=== PATIENT | female | born 1975 | race Caucasian/White ===

== ENCOUNTER 2017-07-14 21:54 | Observation (INO) | payer SELFPAY ==
[2017-07-14] MEDS ORDERED: Ondansetron INJ* 2 MG/ML VIAL IV ONE (22:55)
[2017-07-14] MEDS ORDERED: NS 0.9% 1000 ML* 1,000 ML IV ONE (22:55)
[2017-07-14] MEDS ORDERED: Meclizine TAB* 12.5 MG PO ONE (22:55)
[2017-07-14 23:08] LABS: Hematocrit 38 % (35-47); Hemoglobin 12.6 g/dl (12.0-16.0); Mean Corpuscular HGB Conc 33 g/dl (31-36); Mean Corpuscular Hemoglobin 28 pg (27-31); Mean Corpuscular Volume 85 fL (80-97); Mean Platelet Volume 8 um3 (7.4-10.4); Red Blood Count 4.48 10^6/ul (4.0-5.4); Red Cell Distribution Width 15 % (10.5-15)
[2017-07-14 23:21] LABS: ALT 30 U/L (7-52); AST 19 U/L (13-39); Albumin 4.1 g/dL (3.2-5.2); Alkaline Phosphatase 99 U/L (34-104); Anion Gap 8 mmol/L (2-11); BUN/Creatinine Ratio 15.3 (8-20); Blood Urea Nitrogen 11 mg/dL (6-24); CO2 Carbon Dioxide 25 mmol/L (22-32); Calcium 9.6 mg/dL (8.6-10.3); Chloride 103 mmol/L (101-111); EGFR African American 115.4 (>60); EGFR Non-African American 89.7 (>60); Globulin 3.5 g/dL (2-4); Glucose 136 mg/dL (70-100); Potassium 3.5 mmol/L (3.5-5.0); Sodium 136 mmol/L (133-145); Total Protein 7.6 g/dL (6.4-8.9)
[2017-07-15] MEDS ORDERED: LORazepam INJ* 2 MG/ML 1 ML VIAL IV PUSH ONE (00:16)
[2017-07-15] MEDS ORDERED: NS 0.9% 1000 ML* 1,000 ML IV SCH ×2 (04:15→14:24)
--- NOTE | 2017-07-15 07:13 | HP ---
CC: Rachael Briceno MD * HISTORY AND PHYSICAL: DATE OF ADMISSION: 07/15/17 PRIMARY CARE PHYSICIAN: Rachael Briceno MD CHIEF COMPLAINT: Vertigo. HISTORY OF PRESENT ILLNESS: Sonal Saucedo is a 42-year-old female with no significant past medical history, who presented to the hospital complaining of vertigo. The patient stated that she was driving home from work and she turned her head rapidly to see if there is no deer on the side of the road and when she looked back in the front of the car, she all of a sudden became nauseated and noted to have severe vertigo. That was over 24 hours prior to her presentation to the ED. For the past 24 hours, she was trying to treat herself with Benadryl. She continues to be nauseated whenever she sits up or moves her head. She continues to complain of the whole wall "spinning." The patient is going to be placed on overnight observation with a diagnosis of benign positional vertigo. PAST MEDICAL HISTORY: None. CURRENT MEDICATIONS: None apart from p.r.n. Benadryl over the counter. ALLERGIES: NAPROXEN and PENICILLIN. FAMILY HISTORY: Positive for father with hypertension and diabetes and mother with hypothyroidism. SOCIAL HISTORY: The patient denies any tobacco, alcohol, or drug use. She lives with her and 3 children. Her will be her surrogate if needed. REVIEW OF SYSTEMS: Please see history of present illness. In addition to the above mentioned, the patient stated that she has not had any recent fevers or upper respiratory infection symptoms. She has no history of sick contacts. She denies any abdominal pain or diarrhea. All the remaining 12 systems were reviewed with the patient and were otherwise negative. PHYSICAL EXAMINATION GENERAL: The patient is a very pleasant 42-year-old female, who is in no acute distress. Alert, awake, and oriented x3. VITAL SIGNS: Blood pressure of 110/65, heart rate of 65 and regular, respiratory rate 16, oxygen saturation 96% on room air, temperature of 98.2. HEENT: Head: Atraumatic, normocephalic. Eyes: Pupils are equal, reactive to light and accommodation. Oropharynx clear. Mucosa moist. On evaluation of patient's ear canal, the tympanic membranes, there are no abnormalities noted on otoscopic evaluation. NECK: Supple. No JVD. No bruits bilaterally. RESPIRATORY: Clear to auscultation bilaterally. CARDIOVASCULAR: Regular rate and rhythm. No murmurs. ABDOMEN: Soft and nontender. Bowel sounds present in all quadrants. EXTREMITIES: There is no edema. Pulses +2 bilaterally. No clubbing or cyanosis. NEURO: Noted for nystagmus with a fast phase to the right. Cranial nerves II through XII grossly intact. Motor strength is 5/5 bilaterally. SKIN: On evaluation of the skin, no ecchymotic areas or rashes. DIAGNOSTIC STUDIES/LAB DATA: White blood cell count of 12.0, hemoglobin 12.6, hematocrit 38, platelets of 331. Sodium 136, potassium 3.5, chloride 103, carbon dioxide 25, BUN 11, creatinine 0.72. Liver functions are unremarkable. Beta HCG below 0.6. CT of the brain performed in the ED, impression: "There is a small calcification noted in the left parietal lobe region of questionable significance. There is no skull fracture. Visualized portions of the paranasal sinuses are essentially clear. Mastoid air cells are normally pneumatized." ASSESSMENT AND PLAN: A 42-year-old female with no significant past medical history, who developed vertigo after she moved her head abruptly to one side. At this point, it appears that the patient has benign positional vertigo and nystagmus due to that. The patient is going to be placed on overnight observation on medical floor. Intravenous hydration is going to be provided as well as meclizine. For DVT prophylaxis, the patient is ambulatory and that is going to be encouraged. TIME SPENT: Approximately 55 minutes was spent on admission of this patient, more than half the time was spent [id number] with the patient during the interview and physical exam. [id number]/[facility] #: [id number] [facility]ITAL[facility]mi
[2017-07-15] MEDS ORDERED: Ondansetron INJ* 2 MG/ML VIAL IV PRN (07:56)
[2017-07-15] MEDS ORDERED: Acetaminophen TAB* 325 MG PO PRN (07:57)
--- NOTE | 2017-07-15 08:06 | RAD ---
INDICATION: Vertigo. COMPARISON: There are no prior studies available for comparison. TECHNIQUE: Contiguous axial sections of the brain were obtained from the skull base to the vertex without contrast. FINDINGS: The ventricles, cisterns and sulci are within normal limits. No significant focal abnormality or mass effect is seen. There is no evidence for hemorrhage. There is a small coarse nonspecific although likely incidental calcification which projects in the left parietal lobe. No significant focal osseous abnormality is seen. The visualized portion of the paranasal sinuses and mastoid air cells appear clear. IMPRESSION: NO EVIDENCE FOR GROSS ACUTE INFARCT, MASS EFFECT OR HEMORRHAGE.
[2017-07-15] MEDS: Meclizine TAB* 12.5 MG PO SCH ×3 (10:00→21:20)
[2017-07-15] MEDS ORDERED: PROCHLORPERAZINE INJ 5 MG/ML 2 ML VIAL IV PRN (11:53)
[2017-07-15 12:13] LABS: Urine Bacteria Absent (Absent); Urine Bilirubin Negative (Negative); Urine Glucose Negative (Negative); Urine Nitrite Negative (Negative)
[2017-07-15] MEDS: Diazepam TAB(*) 5 MG PO PRN (14:46)
--- NOTE | 2017-07-15 19:04 | PN ---
Subjective Date of Service: 07/15/17 Interval History: Ms. Saucedo states that she has had no real change to her vertigo or nausea. She denies other complaint including chest pain, SOB, nausea, or abdominal pain. She further denies ear pain, throat pain. She has no sinus congestion or nasal drainage. Objective Active Medications: Acetaminophen (Tylenol Tab*) 650 mg PO Q4H PRN Diazepam (Valium Tab(*)) 5 mg PO Q8H PRN Sodium Chloride (Ns 0.9% 1000 Ml*) 1,000 mls @ 75 mls/hr IV PER RATE MATILDE Meclizine HCl (Antivert Tab*) 25 mg PO TID MATILDE Ondansetron HCl (Zofran Inj*) 4 mg IV Q6H PRN Prochlorperazine Edisylate (Compazine Inj*) 5 mg IV Q6H PRN Vital Signs: Temp Pulse Resp BP Pulse Ox 97.5 F 65 16 114/63 97 07/15/17 15:13 07/15/17 15:13 07/15/17 17:19 07/15/17 15:13 07/15/17 15:13 Oxygen Devices in Use Now: None Appearance: Female lying in bed in NAD Eyes: No Scleral Icterus Ears/Nose/Mouth/Throat: Mucous Membranes Moist Neck: Trachea Midline Respiratory: Symmetrical Chest Expansion and Respiratory Effort, Clear to Auscultation Cardiovascular: NL Sounds; No Murmurs; No JVD, No Edema Abdominal: NL Sounds; No Tenderness; No Distention Lymphatic: No Cervical Adenopathy Extremities: No Edema Skin: No Rash or Ulcers Neurological: Alert and Oriented x 3, NL Muscle Strength and Tone Nutrition: Taking PO's Result Diagrams: 07/14/17 22:34 07/14/17 22:34 Assess/Plan/Problems-Billing Assessment: Ms. Saucedo is a 42 yo female with no significant PMH who was admitted on 07/14 with vertigo. - Patient Problems (1) Vertigo Comment: - Appreciate neuro consult. - Continue to suspect peripheral vertigo, possible BPPV though Lawanda maneuver was not successful in reducing symptoms. - Continue valium, meclizine and IV fluids. (2) Nausea Comment: - Continue zofran, compazine. (3) DVT prophylaxis Comment: - Early mobility, SCDs. (4) Full code status Status and Disposition: OBV. Anticipate discharge to home when medically stable.
[2017-07-16] MEDS: Diazepam TAB(*) 5 MG PO PRN (00:08)
[2017-07-16 08:30] VITALS: BP 121/71
[2017-07-16] MEDS ORDERED: Meclizine TAB* 12.5 MG PO SCH (08:36)
--- NOTE | 2017-07-16 09:19 | PN ---
Subjective Date of Service: 07/16/17 Interval History: Ms. Saucedo states that she is feeling better this morning. She is able to sit up and is tolerating jello for breakfast. She continues to feel vertiginous when she turns her head quickly. She denies other complaint including chest pain, SOB, or abdominal pain. Objective Active Medications: Acetaminophen (Tylenol Tab*) 650 mg PO Q4H PRN Diazepam (Valium Tab(*)) 5 mg PO Q8H PRN Sodium Chloride (Ns 0.9% 1000 Ml*) 1,000 mls @ 75 mls/hr IV PER RATE MATILDE Meclizine HCl (Antivert Tab*) 12.5 mg PO TID MATILDE Ondansetron HCl (Zofran Inj*) 4 mg IV Q6H PRN Prochlorperazine Edisylate (Compazine Inj*) 5 mg IV Q6H PRN Vital Signs: Temp Pulse Resp BP Pulse Ox 97.4 F 70 18 121/71 98 07/16/17 07:40 07/16/17 07:40 07/16/17 07:40 07/16/17 07:40 07/16/17 07:40 Oxygen Devices in Use Now: None Appearance: Female sitting up in bed in NAD Eyes: No Scleral Icterus Ears/Nose/Mouth/Throat: Mucous Membranes Moist Neck: Trachea Midline Respiratory: Symmetrical Chest Expansion and Respiratory Effort, Clear to Auscultation Cardiovascular: NL Sounds; No Murmurs; No JVD, No Edema Abdominal: NL Sounds; No Tenderness; No Distention Lymphatic: No Cervical Adenopathy Extremities: No Edema Skin: No Rash or Ulcers Neurological: Alert and Oriented x 3, NL Muscle Strength and Tone, - - Nystagmus much improved today Nutrition: Taking PO's Result Diagrams: 07/14/17 22:34 07/14/17 22:34 Assess/Plan/Problems-Billing Assessment: Ms. Saucedo is a 42 yo female with no significant PMH who was admitted on 07/14 with vertigo. - Patient Problems (1) Vertigo Comment: - Much improved today. - Appreciate neuro consult. - Continue to suspect peripheral vertigo, possible BPPV though Lawanda maneuver was not initially successful in reducing symptoms. - Continue valium, meclizine, zofran and scopolamine. (2) Nausea Comment: - Continue zofran. (3) DVT prophylaxis Comment: - Early mobility, SCDs. (4) Full code status Status and Disposition: OBV. Discharge to home.
[2017-07-16] MEDS ORDERED: Ondansetron ODT TAB* 4 MG SL PRN (11:50)
--- NOTE | 2017-07-17 01:18 | DS ---
CC: Rachael Briceno MD * [facility] MEDICINE DISCHARGE SUMMARY: DATE OF ADMISSION: 07/15/17 DATE OF DISCHARGE: 07/16/17 PRIMARY CARE PHYSICIAN: Rachael Briceno MD. ATTENDING PHYSICIAN: Dr. Wes Copeland * (dictation provided by Radha Hernandez NP) PRIMARY DIAGNOSIS: Benign paroxysmal positional vertigo. SECONDARY DIAGNOSIS: None. MEDICATIONS AT THE TIME OF DISCHARGE: 1. Ondansetron 4 mg p.o. q.4 hours p.r.n. nausea. 2. Meclizine 12.5 mg p.o. t.i.d. 3. Diazepam 5 mg p.o. q.8 hours p.r.n. 4. Scopolamine patch one tab q.72 hours. HOSPITAL COURSE: Ms. Saucedo is a 42-year-old female with no significant past medical history, who presented to the hospital on 07/15/17, with concern for vertigo. Please see dictated H and P from Dr. Idalia Cruz for complete details. In brief, the patient had been driving home after work when she turned her head to the right and developed a sudden onset of spinning sensation with vertigo and nausea. The patient was able to make it home. She stayed at home for about 24 hours but when her symptoms did not resolve, she ultimately presented to the emergency room for evaluation. In the emergency room, she had a CT of the brain that showed no acute abnormality and she had labs that were essentially unremarkable. Ms. Saucedo was seen in consultation by Dr. Canales from Neurology yesterday, who agreed that the patient likely had benign paroxysmal positional vertigo. The patient had positive nystagmus. The Lawanda maneuver was done with Ms. Saucedo. She did not have any real clear improvement in her symptoms at that point. However today, she is feeling somewhat better. She is able to sit up. She is able to tolerate eating jello. She states that she continues to have vertigo when she turns her head, but that the symptoms are at least tolerable at this point. Ms. Saucedo is medically stable for discharge to home. She will be following up with her primary care physician. An appointment will be arranged for her prior to her leaving today. DISPOSITION: Home. DIET: Regular. ACTIVITY: As tolerated. FOLLOWUP PLANS: Please follow up with Dr. Briceno regarding his acute hospitalization. TIME SPENT: Approximately 60 minutes was spent on the discharge of this patient , more than half of that time was spent with the patient at the bedside reviewing the events leading up to this hospitalization, performing the physical examination, and reviewing my plan of care. RADHA HERNANDEZ NP [id number]/[facility] #: [id number] DEEPTI
== END 2017-07-16 12:04 | disposition home or self-care (01) ==
LOC: ED 21:54 → MEDTELE 07-15 03:00
PROVIDERS: ADMIT Internal Medicine; ATTEND Internal Medicine
DX: H81.10 Benign paroxysmal vertigo, unspecified ear (principal); Z88.0 Allergy status to penicillin; Z91.09 Other allergy status, other than to drugs and biological substances
CPT/HCPCS: 36415; 70450; 80053; 81003; 81015; 84702; 85027; 93005; 96365; 96375; 99285; A9270-GY; G0378; J0780; J2060; J2405